=== PATIENT | female | born 1990 | race American Indian/Alaskan Native ===

== ENCOUNTER 2021-11-24 08:06 | Inpatient (IN) | payer OTHER ==
[2021-11-24] MEDS ORDERED: LACTATED RINGERS 1,000 ML ONE (10:06)
[2021-11-24] MEDS ORDERED: MINERAL OIL 30 ML ORAL LIQD PO PRN (10:37)
[2021-11-24] MEDS ORDERED: METHYLERGONOVINE MALEATE 0.2 MG/ML VIAL IM PRN (10:37)
[2021-11-24] MEDS ORDERED: fentaNYL 100 MCG/2 ML INJ IV PRN (10:37)
[2021-11-24] MEDS ORDERED: miSOPROStol 200 MCG TAB PR PRN (10:37)
[2021-11-24] MEDS ORDERED: TERBUTALINE 1 MG/1 ML INJ SUB-Q PRN (10:37)
[2021-11-24] MEDS ORDERED: ePHEDrine SULFATE 50 MG/1 ML INJ IV PRN (10:37)
[2021-11-24] MEDS ORDERED: LOPERAMIDE 2 MG CAP PO PRN (10:37)
[2021-11-24] MEDS ORDERED: CARBOPROST TROMETHAMINE 250 MCG/1 ML INJ IM PRN (10:37)
[2021-11-24] MEDS ORDERED: NalbUPHINE 10 MG/1 ML INJ IV PRN (10:37)
[2021-11-24] MEDS ORDERED: ACETAMINOPHEN 325 MG TAB PO PRN ×2 (10:37→13:46)
[2021-11-24] MEDS ORDERED: OXYTOCIN 10 UNIT/1 ML INJ IM PRN (10:37)
[2021-11-24] MEDS ORDERED: LACTATED RINGERS 1,000 ML IV SCH (10:45)
[2021-11-24] MEDS ORDERED: OXYTOCIN DRIP 30 UNITS/500 ML BAG IV SCH ×2 (11:00)
[2021-11-24 11:13] LABS: Hematocrit 38.9 % (30.3-42.9); Hemoglobin 12.4 gm/dl (10.1-14.3); Mean Corpuscular HGB Conc 32 % (30-34); Mean Corpuscular Volume 81 fl (79-97); Platelet Count 203 K/mm3 (140-440); Red Blood Count 4.81 M/mm3 (3.65-5.03)
[2021-11-24] MEDS ORDERED: LIDOCAINE (2%) 20 MG/1 ML VIAL 20 ML MDV INFILTRATI ONE (12:00)
[2021-11-24] MEDS ORDERED: HYDROcodone/ACETAMINOPHEN 5-325 MG TAB PO PRN (13:46)
[2021-11-24] MEDS ORDERED: MAGNESIUM HYDROXIDE (MOM) ORAL LIQD UDC PO PRN (13:46)
[2021-11-24] MEDS ORDERED: PROMETHAZINE 25 MG RECT SUPP PR PRN (13:46)
[2021-11-24] MEDS ORDERED: WITCH HAZEL/ GLYCERIN PAD TP PRN (13:46)
[2021-11-24] MEDS ORDERED: LANOLIN/ZINC/DIMETHICONE (LANSINOH) 7 GM TP PRN (13:46)
[2021-11-24] MEDS ORDERED: KETOROLAC 30 MG/1 ML INJ IV PRN (13:46)
[2021-11-24] MEDS ORDERED: diphenhydrAMINE 25 MG CAP PO PRN (13:46)
[2021-11-24] MEDS ORDERED: ONDANSETRON 4 MG/2 ML INJ IV PRN (13:46)
[2021-11-24] MEDS ORDERED: PROMETHAZINE 25 MG TAB PO PRN (13:46)
--- NOTE | 2021-11-24 13:55 | History and Physical Report ---
History of Present Illness Date of examination: 11/24/21 Date of admission: 11/24/21 08:07 Chief complaint: Active labor. History of present illness: 38+3 wks. Spontaneous labor. Past History Past Medical History: no pertinent history - Obstetrical History Expected Date of Delivery: 12/05/21 Actual Gestation: 38 Week(s) 3 Day(s) : 2 Para: 1 Medications and Allergies Allergies Allergy/AdvReac Type Severity Reaction Status Date / Time No Known Allergies Allergy Unverified 11/24/21 08:23 Active Meds: Active Medications Acetaminophen (Acetaminophen 325 Mg Tab) 650 mg PO Q4H PRN PRN Reason: Pain, Mild (1-3) Acetaminophen (Acetaminophen 325 Mg Tab) 650 mg PO Q4H PRN PRN Reason: Pain MILD(1-3)/Fever >100.5/BRADY Hydrocodone Bitart/Acetaminophen (Hydrocodone/Acetaminophen 5-325 Mg Tab) 2 each PO Q6H PRN PRN Reason: Pain, Moderate (4-6) Bisacodyl (Bisacodyl 10 Mg Rect Supp) 10 mg MO BID PRN PRN Reason: Constipation Carboprost Tromethamine (Carboprost Tromethamine 250 Mcg/1 Ml Inj) 250 mcg IM ONCE PRN PRN Reason: Uterine Bleeding Diphenhydramine HCl (Diphenhydramine 25 Mg Cap) 25 mg PO Q6H PRN PRN Reason: Itching Docusate Sodium (Docusate Sodium 100 Mg Cap) 100 mg PO BID ASHLEY Ephedrine Sulfate (Ephedrine Sulfate 50 Mg/1 Ml Inj) 10 mg IV Q2M PRN PRN Reason: Hypotension Fentanyl (Fentanyl 100 Mcg/2 Ml Inj) 100 mcg IV Q2H PRN PRN Reason: Pain,Severe (7-10) LABOR PAIN Last Admin: 11/24/21 11:26 Dose: 100 mcg Oxytocin/Sodium Chloride (Pitocin/Ns 30 Unit/500ml) 30 units in 500 mls @ 2 mls/hr IV TITR ASHLEY; Protocol Last Admin: 11/24/21 11:35 Dose: 2 ml/hr, 2 mls/hr Lactated Ringer's (Lactated Ringers) 1,000 mls @ 125 mls/hr IV DIRECT ASHLEY Oxytocin/Sodium Chloride (Pitocin/Ns 30 Unit/500ml) 30 units in 500 mls @ 40 mls/hr IV TITR ASHLEY; Protocol Ibuprofen (Ibuprofen 800 Mg Tab) 800 mg PO Q6H ASHLEY Ketorolac Tromethamine (Ketorolac 30 Mg/1 Ml Inj) 30 mg IV Q6H PRN PRN Reason: Pain, Moderate (4-6) Stop: 11/29/21 13:45 Loperamide HCl (Loperamide 2 Mg Cap) 2 mg PO ONCE PRN PRN Reason: give with Hemabate Magnesium Hydroxide (Magnesium Hydroxide (Mom) Oral Liqd Udc) 30 ml PO HS PRN PRN Reason: Constipation Methylergonovine Maleate (Methylergonovine Maleate 0.2 Mg/Ml Vial) 0.2 mg IM ONCE PRN PRN Reason: Uterine Bleeding Mineral Oil (Mineral Oil 30 Ml Oral Liqd) 30 ml PO QHS PRN PRN Reason: Constipation Misoprostol (Misoprostol 200 Mcg Tab) 800 mcg MO ONCE PRN PRN Reason: Uterine Bleeding Multi-Ingredient Ointment (Lanolin/Zinc/Dimethicone (Lansinoh) 7 Gm) 1 applic TP PRN PRN PRN Reason: Sore Nipples Multivitamins/Iron/Calcium ( [id number] Fumarate-Folic Acid Vit Tab) 1 each PO QDAY ASHLEY Nalbuphine HCl (Nalbuphine 10 Mg/1 Ml Inj) 10 mg IV Q2H PRN PRN Reason: Pain, Moderate (4-6) Ondansetron HCl (Ondansetron 4 Mg/2 Ml Inj) 4 mg IV Q8H PRN PRN Reason: Nausea And Vomiting Oxytocin (Oxytocin 10 Unit/1 Ml Inj) 10 unit IM ONCE PRN PRN Reason: Uterine Bleeding Promethazine HCl (Promethazine 25 Mg Rect Supp) 25 mg MO Q6H PRN PRN Reason: Nausea And Vomiting Promethazine HCl (Promethazine 25 Mg Tab) 25 mg PO Q6H PRN PRN Reason: Nausea And Vomiting Sodium Chloride (Sodium Chloride 0.9% 10 Ml Flush Syringe) 10 ml IV PRN NR Terbutaline Sulfate (Terbutaline 1 Mg/1 Ml Inj) 0.25 mg SUB-Q ONCE PRN PRN Reason: Hyperstimulation/Hypertonicity Witch Hortencia/Glycerin (Witch Hortencia/ Glycerin Pad) 1 each TP PRN PRN PRN Reason: Hemorrhoid/cleansing/soothing Review of Systems All systems: negative Gastrointestinal: abdominal pain Genitourinary: contractions - Vital Signs Vital signs: Vital Signs Temp Resp Pulse Ox 98.6 F 18 100 11/24/21 08:33 11/24/21 08:33 11/24/21 08:33 Temp Pulse Resp BP Pulse Ox 97.8 F 71 16 130/65 100 11/24/21 11:18 11/24/21 13:46 11/24/21 11:26 11/24/21 13:44 11/24/21 13:46 - Physical Exam Breasts: Positive: deferred Lungs: Positive: Normal air movement Abdomen: Positive: normal appearance, soft, distention, normal bowel sounds Genitourinary (Female): Positive: normal external genitalia, normal perenium Vulva: both: normal Vagina: Positive: normal moisture. Negative: discharge Cervix: Negative: lesion, discharge Anus/Rectum: Positive: normal perianal skin, heme negative. Negative: rectal mass, hemorrhoids Extremities: Positive: normal Deep Tendon Reflex Grade: Normal +2 - Obstetrical FHR: category 1 Uterine Contraction Monitor Mode: External Cervical Dilatation: 10 Cervical Effacement Percentage: 100 station: 0+2 Uterine Contraction Frequency (min): q3mins Uterine Contraction Pattern: Regular Uterine Contraction Intensity: Strong/Firm Results Result Diagrams: 11/24/21 10:58 Abnormal lab results 11/24/21 Range/Units 10:58 MCH 26 L (28-32) pg All other labs normal. Assessment and Plan - Patient Problems (1) Active labor at term Current Visit: Yes Status: Acute (2) 38 weeks gestation of Current Visit: Yes Status: Acute (3) Vaginal delivery Current Visit: Yes Status: Acute Plan to address problem: Delivered shortly following admission.
--- NOTE | 2021-11-24 14:00 | Procedure Note ---
OB Delivery Note - Delivery Date of Delivery: 11/24/21 Surgeon: HA AGUERO Estimated blood loss: 200cc - Vaginal Delivery presentation: vertex Delivery position: OA Intrapartum events: none Delivery induction: none Delivery augmentation: pitocin Delivery monitor: external FHT, external uterine Route of delivery: Delivery placenta: spontaneous, expressed Delivery cord: 3 umbilical vessels Episiotomy: midline Delivery laceration: none Delivery repair: vicryl Anesthesia: local (10cc 1% plain lidocaine.) - B at 1 minute: 9 at 5 minutes: 9 (6lbs 13oz.) Gender: Female
[2021-11-24] MEDS ORDERED: BENZOCAINE/MENTHOL 20/0.5% TOP SPRAY 56 GM TP ONE (18:03)
[2021-11-24] MEDS ORDERED: BENZOCAINE/MENTHOL 20/0.5% TOP SPRAY 56 GM TP PRN (18:10)
[2021-11-24] MEDS: IBUPROFEN 800 MG TAB PO SCH (18:23)
[2021-11-25] MEDS: IBUPROFEN 800 MG TAB PO SCH ×4 (00:14→18:36)
[2021-11-25 00:31] LABS: Hemoglobin 9.7 gm/dl (10.1-14.3)
[2021-11-25] MEDS: DOCUSATE SODIUM 100 MG CAP PO SCH (11:20)
[2021-11-25] MEDS: PRENATAL VIT27-FE FUMARATE-FOLIC ACID VIT TAB PO SCH (11:21)
--- NOTE | 2021-11-25 15:45 | Progress Note ---
Assessment and Plan - Patient Problems (1) Active labor at term Current Visit: Yes Status: Resolved (2) 38 weeks gestation of Current Visit: Yes Status: Resolved (3) Vaginal delivery Current Visit: Yes Status: Resolved (4) Status post vaginal delivery Current Visit: Yes Status: Acute Plan to address problem: Stable and may go home. Baby will be decided by Peds. Subjective - Subjective Date of service: 11/25/21 Principal diagnosis: Status post vaginal delivery day1. Interval history: 38+3 wks. Spontaneous labor. yesterday. Feeling great and wants to go home if her baby could too. Patient reports: appetite normal, voiding normally, pain well controlled, ambulating normally [place]: doing well, nursing well Objective - Vital Signs Latest vital signs: Vital Signs Temp Pulse Resp BP Pulse Ox Pulse Ox 11/25/21 08:21 97.6 F 70 18 118/71 100 11/25/21 08:00 98 11/25/21 01:35 97.9 F 66 50 H 131/61 100 11/24/21 21:24 97.7 F 65 18 110/54 100 11/24/21 19:45 98 11/24/21 16:33 100 Intake and Output 11/24/21 11/25/21 11/25/21 23:59 07:59 15:59 Intake Total 120 360 600 Output Total 400 500 Balance -280 -140 600 Intake: Oral 120 360 360 Intake, Free Water 240 Output: Urine 400 500 Void 400 500 Other: Total, Intake Amount 120 120 240 Total, Output Amount 400 500 # Voids Void 1 1 1 - Exam Breasts: Present: deferred Lungs: Present: Normal air movement Abdomen: Present: normal appearance, soft, normal bowel sounds Uterus: Present: normal, firm Extremities: Present: normal Deep Tendon Reflex Grade: Normal +2 - Labs Labs: Abnormal lab results 11/25/21 Range/Units 00:21 Hgb 9.7 L (10.1-14.3) gm/dl Hct 30.0 L D (30.3-42.9) %
--- NOTE | 2021-11-25 15:49 | Discharge Summary ---
Providers - Providers Date of Admission: 11/24/21 08:07 Date of discharge: 11/25/21 Attending physician: HA AGUERO MD Primary care physician: HA AGUERO MD Hospitalization Reason for admission: active labor, IUP at term Delivery: Episiotomy: midline Laceration: none Incision: normal, dry, intact Other procedures: none complications: none Discharge diagnosis: IUP at term delivered baby: female Condition at discharge: Good Disposition: 01 HOME / SELF CARE / HOMELESS - Discharge Diagnoses (1) Active labor at term Status: Resolved (2) 38 weeks gestation of Status: Resolved (3) Vaginal delivery Status: Resolved (4) Status post vaginal delivery Status: Acute Plan - Provider Discharge Summary Activity: routine, no sex for 6 weeks, no heavy lifting 4 weeks, no strenuous exercise Diet: routine Instructions: routine Additional instructions: [] Smoking cessation referral if applicable(refer to patient education folder for contact #) [] Refer to [facility]'s [facility] Booklet Call your doctor immediately for: * Fever > 100.5 * Heavy vaginal bleeding ( >1 pad per hour) * Severe persistent headache * Shortness of breath * Reddened, hot, painful area to leg or breast * Drainage or odor from incision. * Keep incision clean and dry at all times and follow doctor's instructions regarding bathing/showering - Follow up plan Follow up: HA AGUERO MD [Primary Care Provider] - 7 Days
[2021-11-26] MEDS: DOCUSATE SODIUM 100 MG CAP PO SCH ×2 (01:04→12:42)
[2021-11-26] MEDS: IBUPROFEN 800 MG TAB PO SCH ×3 (01:05→12:42)
[2021-11-26] MEDS: PRENATAL VIT27-FE FUMARATE-FOLIC ACID VIT TAB PO SCH (12:42)
[2021-11-26 15:40] VITALS: BP 102/66
== END 2021-11-26 15:27 | disposition home or self-care (01) | DRG 807 ==
LOC: APU 08:06 → TRG 08:06 → LD 08:07 → TRG 10:43 → OB 16:04
PROVIDERS: ADMIT Obstetrics & Gynecology; ATTEND Obstetrics & Gynecology
PROC: 10E0XZZ Delivery of Products of Conception, External Approach (ICD-10-PCS; principal; 2021-11-24)
PROC: 0W8NXZZ Division of Female Perineum, External Approach (ICD-10-PCS; 2021-11-24)
DX: O80 Encounter for full-term uncomplicated delivery (principal); Z37.0 Single live birth; Z3A.38 38 weeks gestation of pregnancy; Z20.822 Contact with and (suspected) exposure to COVID-19
CPT/HCPCS: 36415; 85014; 85018; 85027; 86850; 86900; 86901; G0378; J2590; J3010; U0003